=== PATIENT | female | born 1950 | race Hispanic/Latino ===

== ENCOUNTER 2022-09-21 16:01 | Emergency (ER) | payer OTHER ==
[~2022-09-21] VITALS: Ht 172.7 cm; Wt 90.3 kg
[2022-09-21 18:30] LABS: BASOPHILS % (AUTO) 0.4 % (0.0-5.0); EOSINOPHILS % (AUTO) 0.3 % (0.0-8.0); HEMATOCRIT 46.7 % (36-48); LYMPHOCYTES % (AUTO) 17.6 % (21.0-51.0); MEAN CORPUSCULAR HEMOGLOBIN 30.3 pg (27.0-33.0); MEAN CORPUSCULAR HGB CONC 34.3 g/dL (32.0-36.0); MEAN CORPUSCULAR VOLUME 88.4 fL (79-99); MONOCYTES % (AUTO) 6.4 % (3.0-13.0); PLATELET COUNT (AUTO) 222 K/uL (130-400); RED BLOOD CELL COUNT(AUTO) 5.28 MIL/uL (4.00-5.50); RED CELL DISTRIBUTION WIDTH 12.7 % (11.0-15.5); WHITE BLOOD COUNT (AUTO) 14.6 K/uL (4.8-10.8)
[2022-09-21 18:38] LABS: CREATININE 0.9 mg/dL (0.5-1.5); POTASSIUM 3.6 mmol/L (3.5-5.1)
[2022-09-21 18:45] LABS: ALBUMIN 3.8 g/dL (3.5-5.0); TOTAL PROTEIN, SERUM 7.6 g/dL (6.0-8.3)
[2022-09-21] MEDS ORDERED: IOHEXOL 350 MG/ML 100ML INFUS..BTL IV ONE (19:46)
[2022-09-21] MEDS ORDERED: MORPHINE 4 MG SYG ONE (21:29)
[2022-09-21] MEDS ORDERED: ONDANSETRON 4MG INJ ONE (21:29)
[2022-09-21] MEDS ORDERED: ONDANSETRON 4MG INJ IVP ONE (21:30)
[2022-09-21] MEDS ORDERED: MORPHINE 4 MG SYG IVP ONE (21:30)
[2022-09-21 22:14] VITALS: BP 123/75
[2022-09-21] MEDS ORDERED: IBUP-2070 PO (22:37)
[2022-09-21] MEDS ORDERED: CYCL-309 PO (22:37)
== END 2022-09-21 22:49 | disposition home or self-care (01) ==
LOC: EDBD 16:01 → EDH 16:01
DX: S20.219A Contusion of unspecified front wall of thorax, initial encounter (principal); S30.0XXA Contusion of lower back and pelvis, initial encounter; S00.93XA Contusion of unspecified part of head, initial encounter; I10 Essential (primary) hypertension; E78.00 Pure hypercholesterolemia, unspecified; W10.9XXA Fall (on) (from) unspecified stairs and steps, initial encounter; Y93.89 Activity, other specified; Y92.89 Other specified places as the place of occurrence of the external cause; Y99.8 Other external cause status
CPT/HCPCS: 99285; 70450; 96374; 96375; 84484; 80053; 85025; 36415; 72125; 71260; 70486; 74177; J2405; J2270; Q9967